=== PATIENT | male | born 1965 | race Caucasian/White ===

== ENCOUNTER 2020-07-31 17:48 | Emergency (ER) | payer OTHER ==
[2020-07-31] MEDS ORDERED: HYDROCODONE/ACETAMINOPHEN 5-325 MG TABLET PO ONE (18:21)
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
--- NOTE | 2020-07-31 18:46 | RADIOLOGY REPORT (SQ) ---
EXAM DESCRIPTION: WRIST RIGHT 3 VIEWS IMAGES COMPLETED DATE/TIME: 07/31/2020 6:34 pm REASON FOR STUDY: fall pain injury previous fracture COMPARISON: None. NUMBER OF VIEWS: Three views. TECHNIQUE: AP, lateral, and oblique radiographic images acquired of the right wrist. LIMITATIONS: None. FINDINGS: MINERALIZATION: Normal. BONES: Nondisplaced transverse fracture of the distal radius. SOFT TISSUES: No soft tissue swelling. No foreign body. OTHER: No other significant finding. IMPRESSION: Transverse fracture of the distal radius. This appears to be acute. TECHNICAL DOCUMENTATION: JOB ID: [id number] 2010 [employer]- All Rights Reserved Reading location - IP/workstation name: [email or web address]
[2020-07-31] MEDS ORDERED: HYDROCODONE/ACETAMINOPHEN 5-325 MG (6 TAB/ER DISP) PO PRN (19:38)
[2020-07-31 19:53] VITALS: BP 122/83
== END 2020-07-31 20:20 | disposition home or self-care (01) ==
LOC: ER 17:48
DX: S52.591A Other fractures of lower end of right radius, initial encounter for closed fracture (principal); M25.431 Effusion, right wrist; W01.198A Fall on same level from slipping, tripping and stumbling with subsequent striking against other object, initial encounter; Y93.11 Activity, swimming; Y92.832 Beach as the place of occurrence of the external cause
CPT/HCPCS: 99283